=== PATIENT | male | born 1980 | race Caucasian/White ===

== ENCOUNTER 2021-11-04 15:27 | Emergency (ER) | payer OTHER ==
[2021-11-04 16:03] VITALS: PULSE 67; TEMP 98.6
[2021-11-04] MEDS ORDERED: BACITRACIN OINT 1 EACH PACKET TOPICAL ONE (18:36)
--- NOTE | 2021-11-04 18:53 | ED ---
General Adult HPI - General Chief complaint: Skin/Abscess/Foreign Body Stated complaint: surgical glue came unstuck Time Seen by Provider: 11/04/21 17:45 Source: patient Mode of arrival: ambulatory Limitations: no limitations - History of Present Illness Initial comments: This 41-year-old male presents emergency Department with complaint of drainage from laparoscopic hernia surgery. Patient states he underwent laparoscopic hernia surgery 2 left side of his abdomen and mid September. Patient states the laparoscopic incision sites were adhered with Dermabond which did feel off on its own about 2 weeks ago. Patient states he did see his surgeon, around that time, however the glue was still on during that follow-up appointment. Patient states since the glue has peeled off he has been noticing some mild drainage from the sites. He states that there are 3 incision sites. Patient states he did get an ALLERGIC reaction from Band-Aids over the last week and did have some itching around where his bandages were placed which Dr. lopez instructed him to get Benadryl cream for. Patient states he has been using Benadryl cream on his skin and has been using triple antibiotic ointment along with hydrogen peroxide on the actual incision sites. Patient denies any pain or swelling around the incision sites. Patient denies any fevers. Patient denies any chest pain, shortness of breath, nausea, vomiting, change in bowel or bladder, change in appetite, headache, lightheadedness, dizziness. - Related Data Allergies Allergy/AdvReac Type Severity Reaction Status Date / Time adhesive tape AdvReac Rash/Hives Verified 11/04/21 16:03 Review of Systems ROS Statement: Those systems with pertinent positive or pertinent negative responses have been documented in the HPI. ROS Other: All systems not noted in ROS Statement are negative. Past Medical History Past Medical History: No Reported History History of Any Multi-Drug Resistant Organisms: None Reported Past Surgical History: No Surgical Hx Reported, Hernia Repair Past Psychological History: No Psychological Hx Reported Smoking Status: Never smoker Past Alcohol Use History: Occasional Past Drug Use History: None Reported General Exam Limitations: no limitations General appearance: alert, in no apparent distress Head exam: Present: atraumatic, normocephalic, normal inspection Eye exam: Present: normal appearance, PERRL, EOMI. Absent: scleral icterus, conjunctival injection, periorbital swelling ENT exam: Present: normal exam, mucous membranes moist Neck exam: Present: normal inspection, full ROM. Absent: tenderness, meningismus, lymphadenopathy Respiratory exam: Present: normal lung sounds bilaterally. Absent: respiratory distress, wheezes, rales, rhonchi, stridor Cardiovascular Exam: Present: regular rate, normal rhythm, normal heart sounds. Absent: systolic murmur, diastolic murmur, rubs, gallop, clicks GI/Abdominal exam: Present: soft, normal bowel sounds, other (Patient with three 1cm incisions on left side of abdomen. Mild erythema around lowest incision in the shape of Band-Aid that was placed over incision. No pus, bleeding/bruising from incision sites. No tenderness, warmth or sign of infection around incision sites. Incision sites closed+scab formation). Absent: distended, tenderness (Patient without tenderness abdomen. 3 incision sites present without any drainage, bleeding or pus at this time. No sign of infection over incision sites.), guarding, rebound, rigid Extremities exam: Present: normal inspection, full ROM, normal capillary refill. Absent: tenderness, pedal edema, joint swelling, calf tenderness Back exam: Absent: CVA tenderness (R), CVA tenderness (L), paraspinal tenderness, vertebral tenderness Neurological exam: Present: alert, oriented X3, CN II-XII intact Psychiatric exam: Present: normal affect, normal mood Skin exam: Present: warm, dry, intact, normal color. Absent: rash Course Vital Signs 11/04/21 15:59 Temperature 98.6 F Pulse Rate 67 Respiratory 16 Rate Blood Pressure 158/95 Medical Decision Making - Medical Decision Making This 41-year-old female presents emergency Department wondering if he should have his incision sites reclosed after hernia surgery in mid September. On examination of 3 abdominal incision sites there is no sign of infection. Scab formation present over all 3 incision sites, however patient states that the scabs to often fall off and the edges of the incisions seem to slightly open, however there is no sign of this at this time. Patient denies any fever, bleeding of incisions, pain around the incisions. Bacitracin ointment placed over her incision sites. Patient instructed not to put hydrogen peroxide over incisions. I did instruct patient to not use Band-Aids that caused erythema /blistering to his abdomen earlier this week. Patient instructed to follow up with his primary care provider or surgeon next week. Strict return precautions were discussed. Patient verbally agreed to plan. Patient sent home in stable condition. Case discussed in detail with my attending, who suggested that I do not place anything over top of incisions and just apply bacitracin ointment. Disposition Clinical Impression: Encounter for wound re-check Disposition: HOME SELF-CARE Condition: Stable Instructions (If sedation given, give patient instructions): Bacitracin (On the skin), Incisional Hernia (DC) Additional Instructions: Please follow-up with your primary care provider or early next week. Return to the emergency department with any new, worsening, or concerning symptoms. Apply bacitracin ointment as directed Is patient prescribed a controlled substance at d/c from ED?: No Referrals: None,Stated [Primary Care Provider] - 1-2 days Beto Das [STAFF PHYSICIAN] - 1-2 days Time of Disposition: 18:42
[2021-11-04 19:20] VITALS: BP 145/86; RESP 18
== END 2021-11-04 19:16 | disposition home or self-care (01) ==
LOC: EC 15:27
DX: Z48.00 Encounter for change or removal of nonsurgical wound dressing (principal); Z91.040 Latex allergy status
CPT/HCPCS: 99282

== ENCOUNTER → 2023-03-16 | Outpatient (CLI) | payer BC ==
--- NOTE | 2023-03-16 13:14 | US ---
EXAMINATION TYPE: US abdomen comp/pelvis limited DATE OF EXAM: 03/16/2023 COMPARISON: NONE CLINICAL INDICATION: Male, 42 years old with history of R10.84 GENERALIZED ABDOMINAL PAIN; Generalize d pain. Hx umbilical hernia. EXAM MEASUREMENTS: Liver Length: 16.0 cm Gallbladder Wall: 0.1 cm CBD: 0.3 cm Spleen: 12.7 cm Right Kidney: 10.4 x 4.8 x 5.5 cm Left Kidney: 11.2 x 4.9 x 5.1 cm Pancreas: Head and tail obscured by bowel gas Liver: Echogenic, heterogenous and coarse Gallbladder: No stones, sludge or wall thickening seen CBD: wnl Spleen: wnl Right Kidney: No hydronephrosis or masses seen Left Kidney: Medial lower pole anechoic lesion = 1.8 x 1.7 x 1.6 cm Upper IVC: wnl Abd Aorta: Mid portion obscured by overlying bowel gas Bladder: anechoic Left jet seen The visualized portions of the pancreas unremarkable. The tail and head are obscured by overlying bow el gas. The liver demonstrates an echogenic heterogenous and coarse appearance without focal lesion. Gallbladder is unremarkable without evidence of pericholecystic fluid, cholelithiasis, or wall thicke sofy. Common bile duct within normal limits. Spleen is within normal limits. Both kidneys dimension no evidence of solid mass, hydronephrosis, nephrolithiasis. Simple cyst identi fied within the left mid kidney measuring up to 1.8 cm. The visualized portions of the upper IVC and abdominal aorta are within normal limits. The midportion of the abdominal aorta is obscured by overly ing bowel gas. The bladder is anechoic with only the left lateral jet identified. IMPRESSION: 1. No acute process. 2. Hepatic steatosis.
== END | disposition home or self-care (01) ==
LOC: RADUSWWP 12:16
PROVIDERS: ATTEND Internal Medicine
DX: K76.0 Fatty (change of) liver, not elsewhere classified (principal); Z87.19 Personal history of other diseases of the digestive system
CPT/HCPCS: 76700; 76857

== ENCOUNTER → 2024-10-07 | Outpatient (CLI) | payer BC ==
[2024-10-07 14:38] VITALS: BP 130/83; PULSE 67; RESP 16; TEMP 98
--- NOTE | 2024-10-07 20:25 | P.SLEEP ---
History of Present Illness H&P Date: 10/07/24 44-year-old young male patient referred to me due to concerns of sleep apnea. The patient is experiencing excessive fatigue and sleepiness during the day and his current [place] score is at 16. He has loud snoring. He has been noted to have occasional apneas by family members. He also wakes up with a dry mouth. 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 He works 4 days a week. On working days, he goes to bed between 830 and 9 AM and he gets out of bed at around 2 PM. On days off, he goes to bed around 1 AM and usually gets out of bed between 6 and 7 AM in the morning. As such, he is averaging 6 hours of sleep. Takes a few minutes to fall asleep. He sleeps on his back and he naps whenever he can. These are short naps. His weight has remained stable over the past 5 years without any significant weight gain or weight loss. He drinks alcohol socially. Occasionally, he consumes an energy drink to get himself stimulated. No substance abuse. No alcoholism. No smoking. No head trauma. No sleep paralysis. No hallucinations. No cataplexy. No sleepwalking or sleep talking. No nighttime awakening for shortness of breath or chest pain. No personal or family history of obstructive sleep apnea. No other major comorbidities. Due to concern of sleep apnea, the patient was referred to me. Review of Systems Constitutional: Reports daytime sleepiness, Reports fatigue Eyes: denies as per HPI, denies blurred vision, denies bulging eye, denies decreased vision, denies diplopia, denies discharge, denies dry eye, denies irritation, denies itching, denies pain, denies photophobia, denies loss of peripheral vision, denies loss of vision, denies tunnel vision/blind spots Ears: deny: decreased hearing, ear discharge, earache, tinnitus Ears, nose, mouth and throat: Reports as per HPI Cardiovascular: Reports as per HPI Respiratory: Reports snoring Gastrointestinal: Reports as per HPI Genitourinary: Reports as per HPI Musculoskeletal: Reports as per HPI Musculoskeletal: absent: ankle pain, ankle stiffness, ankle swelling, as per HPI, elbow pain, elbow stiffness, elbow swelling, foot pain, foot stiffness, foot swelling, hand pain, hand stiffness, hand swelling, hip pain, hip st iffness, hip swelling, knee pain, knee stiffness, knee swelling, shoulder pain, shoulder stiffness, shoulder swelling, wrist pain, wrist stiffness, wrist swelling Integumentary: Reports as per HPI Neurological: Reports as per HPI Psychiatric: Reports as per HPI, Reports hypersomnia, Reports sleep disturbances Endocrine: Reports as per HPI Hematologic/Lymphatic: Reports as per HPI Allergic/Immunologic: Reports as per HPI Past Medical History Past Medical History: No Reported History Additional Past Medical History / Comment(s): Arthritis - thumbs, 3 knee surgeries - arthritis now. History of Any Multi-Drug Resistant Organisms: None Reported Past Surgical History: Hernia Repair Additional Past Surgical History / Comment(s): 2 left ACL knee surgeries, 1 right knee meniscus, umbilical hernia, bilateral lasik eye surgery, wisdom teeth, kidney stones Past Psychological History: No Psychological Hx Reported Smoking Status: Never smoker Past Alcohol Use History: Occasional Past Drug Use History: None Reported - Past Family History Father Family Medical History: Hypertension Additional Family Medical History / Comment(s): (Sister also with HTN and heart problem) Mother Family Medical History: CVA/TIA, Diabetes Mellitus Medications and Allergies Home Medications and Allergies Comment(s): Vitamin D and probiotic Allergies Allergy/AdvReac Type Severity Reaction Status Date / Time adhesive tape AdvReac Rash/Hives Verified 11/04/21 16:03 Physical Exam Vitals: Vital Signs Temp Pulse Resp BP Pulse Ox 10/07/24 14:37 98.0 F 67 16 130/83 96 Intake and Output 10/07/24 10/07/24 10/07/24 06:59 14:59 22:59 Other: Weight 90.889 kg The patient appeared well nourished and normally developed. Vital signs as documented. Body mass index is 29.6 Head exam is unremarkable. No scleral icterus or corneal arcus noted. Neck is without jugular venous distension, thyromegaly, or carotid bruits. Carotid upstrokes are brisk bilaterally. The patient has a Mallampati class III Lungs are clear to auscultation and percussion. Cardiac exam reveals the PMI to be normally sized and situated. Rhythm is regular. First and second heart sounds normal. No murmurs, rubs or gallops. Abdominal exam reveals normal bowel sounds, no masses, no organomegaly and no aortic enlargement. Extremities are nonedematous and both femoral and pedal pulses are normal. Examination of the skin revealed no evidence of significant rashes, suspicious appearing nevi or other concerning lesions. Neurologically, the patient is awake and alert and the patient does not have any focal neurological deficit. Cranial nerves are essentially intact. Assessment and Plan Plan: Chronic fatigue/sleepiness with an Town[place] score of 16, suspect obstructive sleep apnea. 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 He needs to aim for a consistent sleep schedule even on days off. During those working days, the patient needs to go to bed in the head grease maker hours and block out daytime noise to ensure sleep quality. 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 This will be a nighttime study to rule out the possibility of obstructive sleep apnea and treat accordingly. Sleep Note - Sleep Data ESS Total: 16 - Sleep Note Sleep Note: Temperature: 98.0 F Pulse Rate: 67 Respiratory Rate: 16 Blood Pressure: 130/83 SpO2: 96 Height: 5 ft 9 in Weight: 90.889 kg BMI: Neck Circumference: 17
== END ==
LOC: 3 N SLEEP 13:42
PROVIDERS: ATTEND Internal Medicine Critical Care Medicine
DX: R06.83 Snoring (principal); F41.9 Anxiety disorder, unspecified; Z91.09 Other allergy status, other than to drugs and biological substances
CPT/HCPCS: 99211

== ENCOUNTER 2024-11-04 19:39 | Outpatient (CLI) | payer BC ==
--- NOTE | 2024-11-16 20:08 | P.PCN ---
Date of Procedure: 11/04/24 Operative Findings: Polysomnography report Date of service is 11/04/2024 History 44-year-old young male patient referred to me due to concerns of sleep apnea. The patient is experiencing excessive fatigue and sleepiness during the day and his current [place] score is at 16. He has loud snoring. He has been noted to have occasional apneas by family members. He also wakes up with a dry mouth. He works at [employer] and currently is undergoing midnight shift. He works 4 days a week. On working days, he goes to bed between 830 and 9 AM and he gets out of bed at around 2 PM. On days off, he goes to bed around 1 AM and usually gets out of bed between 6 and 7 AM in the morning. As such, he is averaging 6 hours of sleep. Takes a few minutes to fall asleep. He sleeps on his back and he naps whenever he can. These are short naps. His weight has remained stable over the past 5 years without any significant weight gain or weight loss. He drinks alcohol socially. Occasionally, he consumes an energy drink to get himself stimulated. No substance abuse. No alcoholism. No smoking. No head trauma. No sleep paralysis. No hallucinations. No cataplexy. No sleepwalking or sleep talking. No nighttime awakening for shortness of breath or chest pain. No personal or family history of obstructive sleep apnea. No other major comorbidities. Due to concern of sleep apnea, the patient was referred to me. Pertinent physical findings Weight is 200 pounds with a body mass index of 29.5. Technical description The patient was studied using a standard complex polysomnography protocol that included recording of the Lead II EKG, Central, occipital and frontal EEG, right and left outer canthus EOG, submental EMG, right and left anterior tibialis EMG, respiratory airflow by thermocouple and or pressure/flow transducer, respiratory efforts by abdominal and thoracic PVDF belts, oxygen saturation by cable oximetry. Position by observation synchronized the PSG. Equipment used: [employer]. Sleep architecture The total recording duration was 388.0 minutes. The total sleep time was 360.5 minutes. Overall sleep urgency was 93.2%. Latency to sleep onset was 65.5 minutes. Sleep architecture was catheterized by 11.2% stage I, 72.4% stage II, 0% stage III, 16.6% REM sleep. Respiratory analysis The patient had a total of 0 obstructive apneas and 39 obstructive hypopneas. The resulting AHI was 6.5 consistent with mild obstructive sleep apnea. Noted the obstructive respiratory events were positional in form of hypopneas, predominantly occurring during REM sleep. AHI during REM was 21.0. No evidence of any central apneas. No mixed apneas. Oxygenation analysis The patient had a average pulse ox of 95% while awake. Lowest pulse ox during sleep was 85%. The patient spent majority of sleep time with a pulse ox of 90% and above. No significant saturations were encountered. Cardiac summary Average heart rate was 102 with a minimum heart rate of 48 and the maximum heart of 64 with a rhythm being sinus. Arousal summary The patient had a total of 87 arousals with an arousal index of 14.5. Majority of arousals were spontaneous and somewhat related to obstructive respiratory events. Arousals related to respiratory event included total of 12 events with a respiratory arousal index of 2.0. Limb movement summary A total of 0 periodic limb movements. Assessment Mild REM specific obstructive sleep apnea. AHI was 6.5, worse during REM sleep. Respiratory vents position from obstructive hypopneas, occurring predominantly during REM sleep. Adequate sleep efficiency likely to be at 93.2%. Adequate sleep architecture No significant active oxygen saturations No significant sleep fragmentation No periodic limb movement activity Chronic fatigue/sleepiness with an [place] score of 16, suspect obstructive sleep apnea. 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 He needs to aim for a consistent sleep schedule even on days off. 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 Response to CPAP therapy would not be of major significance as the patient's disease severity is mild at baseline. The patient need to work on losing weight. Consider oral appliance which may help with mild obstructive sleep apnea and snoring. May offer CPAP therapy in the future if the patient symptoms get worse over time.
== END 2024-11-05 05:40 | disposition home or self-care (01) ==
LOC: 3 N SLEEP 19:39
PROVIDERS: ATTEND Internal Medicine Critical Care Medicine
DX: G47.33 Obstructive sleep apnea (adult) (pediatric) (principal); R53.82 Chronic fatigue, unspecified; Z91.048 Other nonmedicinal substance allergy status
CPT/HCPCS: 95810